=== PATIENT | male | born 2000 | race Caucasian/White ===

== ENCOUNTER 2024-02-12 21:14 | Outpatient (REF) | payer BC, SELFPAY | END 2024-02-12 21:15 | disposition home or self-care (01) | LOC: LBN 21:14 | PROVIDERS: Visit Provider Physician Assistant Medical | DX: J02.9 Acute pharyngitis, unspecified (principal) | CPT/HCPCS: 87070 ==

== ENCOUNTER 2025-04-24 19:00 | Emergency (ER) | payer BC, SELFPAY ==
[2025-04-24 19:19] VITALS: BP 119/73; PULSE 84; RESP 16; TEMP 36.6; O2SAT 98
--- NOTE | 2025-04-24 20:25 | ED.GENADUL_ITS ---
Discharge Plan Disposition Patient Disposition: Home Condition: Stable Discharge Details Clinical Impression: Laceration of left hand Primary Care Provider: None,None ED Provider: Arnav Poon Home Meds and New Rx's Prescriptions: No Action No Known Home Meds Discharge Instructions Instructions: Laceration Repair With Stitches ED Additional Instructions: You were seen in the emergency department for the laceration of your left hand that was repaired by 3 sutures, these will need to be removed in 7 to 10 days, for the first 48 hours please apply bacitracin or Neosporin to the wound and change the dressing twice daily after that just apply a clean Band-Aid each day, watch for signs of infection like worsening redness, warmth to touch, red streaking up the arm, drainage of pus from the area. Please use therapeutic dosing of Tylenol (acetamenophen) & Advil (ibuprofen) in an alternating fashion as follows: Take 1000mg of Tylenol every 6 hours without missing doses- that is 4 times per day. [place] in between the Tylenol dosings, take 400-600mg of Advil also on a 6 hour schedule, that is also 4 times per day. The daily maximum dosing of Tylenol is 4000mg, and the daily maximum dosing of Advil is 2400mg. This is safe to do for weeks. Please note that some common cold medications & prescription pain medications may contain acetamenophen and you need to read OTC drug labels and factor that in to maximum daily dosings. Stand Alone Forms: Portal Information, Work Release Discharge Data Discharge Date/Time-TO BE ENTERED AT DEPARTURE: 04/24/25 21:49 HPI General Date/Time Provider Initiated Documentation: 04/24/25 19:10 . HPI Narrative: 24 year-old male presents to ED today by POV/ambulating with a chief complaint of laceration to base of L index finger while cutting an avocado at home, R-hand dominant, with onset just prior to arrival. Quality described as laceration, bleeding controlled, no radiation to spurting of blood, ROM deficit, numbness, other injury. Severity is described as mild. Palliating factors include direct pressure with wash cloth. Provoking factors include nothing specific. Events leading up to the incident/Associated Symptoms: Tdap UTD per patient. Patient not anticoagulated. Related Data Home Medications ?Medication ?Instructions ?Recorded ?Confirmed Unknown [No Known Home Meds] 04/24/25 1 06/25/24 Allergies Allergy/AdvReac Type Severity Reaction Status Date / Time No Known Allergies Allergy Verified 04/24/25 19:25 General Stated Complaint: Laceration HERNÁN: 4 Review of Systems All systems reviewed & are unremarkable except as noted in HPI and below Exam Narrative Exam Narrative: GENERAL APPEARANCE: Well-nourished, non-toxic, awake and alert, atraumatic, no acute distress. SKIN: Warm, pink, dry, linear 1.5 cm laceration to the base of the first finger adjacent to the webspace, no active bleeding, no tendon or muscle involvement, left radial pulse 2+, sensation and range of motion intact in fingers, brisk capillary refill HEAD: Normocephalic, atraumatic, normal hair distribution for gender/age. EYES: Normal conjunctiva, no exudates on lids/lashes. ENT: Nares patent, no circumoral cyanosis, no facial swelling NECK: Supple, trachea midline, painless cervical ROM. LUNGS/CHEST: Non-labored respirations, normal A/P diameter, symmetrical expan mario, no chest wall deformity HEART (CV/PV): No peripheral edema, no JVD. ABDOMEN: Soft, non-distended, no guarding. MSK: Normal ROM, no swelling/deformity to bilateral UEs or LEs, moving all extremities without weakness, no cyanosis, spine midline without tenderness, normal curvature. NEURO: Mental Status AAOx4 - alert to person, place, time, events No facial droop, no forehead involvement. Motor: No focal weakness - strength 5/5 in bilateral UEs and LEs, proximal and distal, symmetric. Sensory: sensation intact to light touch globally. Gait normal: patient ambulated without ataxia into ED room. PSYCH: euthymic, cooperative, pleasant, appropriate speech Course Vital Signs Vital signs: Vital Signs Temperature 36.6 C 04/24/25 19:19 Pulse 84 04/24/25 19:19 Respiratory Rate 16 04/24/25 19:19 Blood Pressure 119/73 04/24/25 19:19 Pulse Oximetry 98 04/24/25 19:19 Temperature 36.6 C 04/24/25 19:19 Temperature Source Oral 04/24/25 19:19 Pulse 84 04/24/25 19:19 Respiratory Rate 16 04/24/25 19:19 Blood Pressure 119/73 04/24/25 19:19 Blood Pressure Position Sitting 04/24/25 19:19 Pulse Oximetry 98 04/24/25 19:19 Oxygen Delivery Method Room Air 04/24/25 19:19 Oxygen Flow Rate 0 04/24/25 19:19 Pain Level 7 04/24/25 19:19 Procedure Laceration Laceration 1: Provider that performed the procedure: Arnav Poon Standard Time Out Performed: No Patient Consented: Verbally Site: hand Side (If applicable): left (1.5cm linear to base of L first finger/web space area) Description: linear (2.5cm laceraton) and clean Depth: simple, single layer Local anesthetic: LET(lidocaine epinephrine tetracaine) and other anesthetic (and 5mL 1% Lidocaine ) Amount of anesthesia used (mL): 3 Pre-repair:: wound explored and irrigated extensively Suture size: 5-0 Number of sutures:: 3 Complications: None Medical Decision Making This dictation utilizes [id number] dictation software and may contain unedited grammatical errors. 24 year-old male presents to ED today by POV/ambulating with a chief complaint of laceration to base of L index finger while cutting an avocado at home, R-hand dominant, with onset just prior to arrival. Quality described as laceration, bleeding controlled, no radiation to spurting of blood, ROM deficit, numbness, other injury. Severity is described as mild. Palliating factors include direct pressure with wash cloth. Provoking factors include nothing specific. Events leading up to the incident/Associated Symptoms: Tdap UTD per patient. Patients' medical history: Negative, otherwise healthy. Family and social history: Noncontributory. Pertinent exam findings / vital signs include linear 1.5 cm laceration to the base of the first finger adjacent to the webspace, no active bleeding, no tendon or muscle involvement, left radial pulse 2+, sensation and range of motion intact in fingers, brisk capillary refill. Differential / pathologies of concern include laceration. Diagnostic studies of: - None. Interventions of: - Let gel, lidocaine for local anesthesia and suture repair with #3 sutures of 5-0 ethilon. ED Course/Assessment/Plan: 24-year-old male presents with a simple linear laceration to the base of the left index finger from a knife while cutting an avocado, he underwent local ane sthesia and suture repair without complication, counseled on keeping the wound clean and dry, taking Tylenol and ibuprofen and routine return for removal in 7 to 10 days, per patient is Tdap is up-to-date we have no records. Findings not consistent with tendon or muscle involvement. Disposition of laceration of left hand. Patient verbalized understanding of the plan and return to ED criteria and engaged in shared decision making. Medical Records Medical records reviewed: Yes I reviewed the patient's medical records. [facility] All Active Problems (Updated 04/24/25 @ 21:49 by MARTHA Brandon) Laceration of left hand (Acute) Social History Smoking/Tobacco Use Status: Never Smoking risk assessment performed?: Yes Alcohol Intake: never Drug use: Never Substance use type: does not use Do you feel safe at home: Yes Do you feel safe in your relationship?: Yes
[2025-04-24] MEDS: Lidocaine/Epinephri/Tetracaine Topical Gel 3 ML TP (21:07)
[2025-04-24] MEDS: Lidocaine 1% Pres-Free 5 ML VIAL IJ (21:16)
== END 2025-04-24 21:49 | disposition home or self-care (01) ==
PROVIDERS: Emergency Provider Physician Assistant
DX: S61.412A Laceration without foreign body of left hand, initial encounter (principal); W26.0XXA Contact with knife, initial encounter
CPT/HCPCS: 12001; J2003